=== PATIENT | female | born 1980 | race Caucasian/White ===

== ENCOUNTER 2019-02-20 07:31 | Emergency (ER) | payer MEDICAID, OTHER ==
[~2019-02-20] VITALS: Ht 160 cm; Wt 50.0 kg
[2019-02-20] MEDS ORDERED: albuterol 2.5 MG/3 ML nebule NEB ONE (08:20)
[2019-02-20] MEDS ORDERED: BENZ-16 PO (09:37)
[2019-02-20] MEDS ORDERED: ALBU18HF2 INH (09:37)
[2019-02-20 09:47] VITALS: BP 131/70
== END 2019-02-20 09:50 | disposition home or self-care (01) ==
LOC: ER 07:32
DX: J06.9 Acute upper respiratory infection, unspecified (principal); J02.9 Acute pharyngitis, unspecified; J45.909 Unspecified asthma, uncomplicated; Z56.0 Unemployment, unspecified; Z90.49 Acquired absence of other specified parts of digestive tract; Z98.890 Other specified postprocedural states; Z88.6 Allergy status to analgesic agent; Z88.1 Allergy status to other antibiotic agents; Z87.891 Personal history of nicotine dependence
CPT/HCPCS: 71045; 94640; 94760; 99283

== ENCOUNTER 2019-04-08 07:06 | Emergency (ER) | payer MEDICAID, OTHER ==
[~2019-04-08] VITALS: Ht 160 cm; Wt 50.0 kg
[~2019-04-08 07:06] MED LIST: ALBU18HF2 INH
[2019-04-08 08:10] LABS: BASOPHILS % (AUTO) 0.4 % (0-1); EOSINOPHILS # (AUTO) 0.3 X10'3 (0-0.9); EOSINOPHILS % (AUTO) 2.2 % (0-6); HEMATOCRIT 39.1 % (35.0-45.0); HEMOGLOBIN 13.2 g/dl (12.0-16.0); LYMPHOCYTES # (AUTO) 1.6 X10'3 (1.1-4.8); LYMPHOCYTES % (AUTO) 13.6 % (21-51); MEAN CORPUSCULAR HEMOGLOBIN 30.7 PG (27.0-31.0); MEAN CORPUSCULAR HGB CONC 33.7 g/dL (33.0-36.5); MEAN CORPUSCULAR VOLUME 91.1 FL (78-98); MEAN PLATELET VOLUME 8.1 FL (7.4-10.4); MONOCYTES # (AUTO) 0.7 X10'3 (0-0.9); MONOCYTES % (AUTO) 6.2 % (2-12); NEUTROPHILS # (AUTO) 9.1 X10'3 (1.8-7.7); NEUTROPHILS % (AUTO) 77.6 % (42-75); PLATELET COUNT 349 X10'3 (140-440); RED BLOOD COUNT 4.29 X10'6 (4.20-5.60); RED CELL DISTRIBUTION WIDTH 14.1 % (11.5-14.5); WHITE BLOOD COUNT 11.7 X10'3 (4.5-11.0)
[2019-04-08 08:11] LABS: URINE HCG NEGATIVE (NEG)
[2019-04-08] MEDS ORDERED: morphine 4 MG/ML inj SYRINge IV PRN (08:15)
[2019-04-08] MEDS ORDERED: normal saline 1000ML IV soln IVB ONE (08:15)
[2019-04-08] MEDS ORDERED: ketorolac trometh. 30mg/ml inj. IV ONE (08:15)
[2019-04-08] MEDS ORDERED: ondansetron/PF 4mg/2ml inj IV ONE (08:15)
[2019-04-08 08:19] LABS: CLARITY,URINE CLOUDY (Clear); COLOR,URINE YELLOW (Yellow); GLUCOSE, URINE NEGATIVE (Neg); KETONES,URINE NEGATIVE (Neg); LEUKOCYTE ESTERASE ,URINE MODERATE (Neg); NITRITES, URINE NEGATIVE (Neg); OCCULT BLOOD,URINE LARGE (Neg); PROTEIN,URINE 100 mg/dl (Neg); UROBILINOGEN,URINE 0.2 E.U/dL (0.2-1.0)
[2019-04-08 08:24] LABS: ALANINE AMINOTRANSFERASE 15 U/L (12-78); ALBUMIN 3.7 G/DL (3.4-5.0); ALBUMIN/GLOBULIN RATIO 1.1 (1.1-1.5); ALKALINE PHOSPHATASE 66 IU/L (46-116); ANION GAP 9 (8-16); ASPARTATE AMINO TRANSFERASE 13 U/L (10-37); BILIRUBIN,TOTAL 0.6 MG/DL (0.1-1.0); BLOOD UREA NITROGEN 14 MG/DL (7-18); BUN/CREATININE RATIO 19.4 (6.6-38.0); CALCIUM 8.4 MG/DL (8.5-10.1); CHLORIDE 106 MMOL/L (99-107); CREATININE 0.72 MG/DL (0.40-0.90); GLUCOSE 89 MG/DL (70-104); LIPASE 87 U/L (73-393); POTASSIUM 3.9 MMOL/L (3.5-5.1); SODIUM 140 MMOL/L (135-145); TOTAL CARBON DIOXIDE 25.5 MMOL/L (24-32); eGFR 90 ML/MIN
[2019-04-08 08:25] LABS: UA COLLECTION TYPE CLN CATCH MIDSTREAM
[2019-04-08 08:28] LABS: WBC,URINE TNTC /HPF (0-4)
[2019-04-08 08:29] LABS: BACTERIA,URINE 1+ /HPF (Neg); RBC,URINE 50-100 /HPF (0-2); SQUAMOUS EPITHELIAL CELL,UR FEW /LPF (FEW)
[2019-04-08 08:30] LABS: MUCUS STRANDS NONE SEEN /LPF (Neg); TRANSITIONAL EPI CELLS,URINE FEW /HPF
[2019-04-08] MEDS ORDERED: SULF1TAB49 PO (08:32)
[2019-04-08 10:51] VITALS: BP 123/69
[2019-04-08] MEDS ORDERED: PROM12.512 PO (18:56)
== END 2019-04-08 10:55 | disposition home or self-care (01) ==
LOC: ER 07:06
DX: N39.0 Urinary tract infection, site not specified (principal); R31.9 Hematuria, unspecified; R19.7 Diarrhea, unspecified; J45.909 Unspecified asthma, uncomplicated; F17.200 Nicotine dependence, unspecified, uncomplicated; Z90.49 Acquired absence of other specified parts of digestive tract; Z98.890 Other specified postprocedural states; Z56.0 Unemployment, unspecified; Z88.6 Allergy status to analgesic agent; Z88.1 Allergy status to other antibiotic agents; Z79.899 Other long term (current) drug therapy
CPT/HCPCS: 36415; 80053; 81001; 81025; 83690; 85025; 87077; 87088; 87186; 96374; 96375; 99284; J1885; J2405; J7030; 96361

== ENCOUNTER 2019-04-08 15:55 | Emergency (ER) | payer MEDICAID ==
[~2019-04-08] VITALS: Ht 160 cm; Wt 50.0 kg
[~2019-04-08 15:55] MED LIST changes: +SULF1TAB49 PO
[2019-04-08 16:08] VITALS: BP 142/92
[2019-04-08] MEDS ORDERED: normal saline 1000ML IV soln IV ONE (16:20)
[2019-04-08] MEDS ORDERED: CefTRIAXone 2gm/D5W 50ml 50 ML IV ONE (16:20)
[2019-04-08 16:58] LABS: BASOPHILS # (AUTO) 0.1 X10'3 (0-0.2); BASOPHILS % (AUTO) 1.2 % (0-1); EOSINOPHILS # (AUTO) 0.3 X10'3 (0-0.9); EOSINOPHILS % (AUTO) 3.1 % (0-6); HEMATOCRIT 36.6 % (35.0-45.0); HEMOGLOBIN 12.5 g/dl (12.0-16.0); LYMPHOCYTES # (AUTO) 2.3 X10'3 (1.1-4.8); LYMPHOCYTES % (AUTO) 27.3 % (21-51); MEAN CORPUSCULAR HEMOGLOBIN 31.6 PG (27.0-31.0); MEAN CORPUSCULAR HGB CONC 34.2 g/dL (33.0-36.5); MEAN CORPUSCULAR VOLUME 92.3 FL (78-98); MEAN PLATELET VOLUME 8.1 FL (7.4-10.4); MONOCYTES # (AUTO) 0.8 X10'3 (0-0.9); MONOCYTES % (AUTO) 9.4 % (2-12); PLATELET COUNT 348 X10'3 (140-440); RED BLOOD COUNT 3.97 X10'6 (4.20-5.60); WHITE BLOOD COUNT 8.5 X10'3 (4.5-11.0)
[2019-04-08 17:13] LABS: ALANINE AMINOTRANSFERASE 20 U/L (12-78); ALBUMIN 3.5 G/DL (3.4-5.0); ALBUMIN/GLOBULIN RATIO 1.1 (1.1-1.5); ALKALINE PHOSPHATASE 63 IU/L (46-116); ANION GAP 10 (8-16); ASPARTATE AMINO TRANSFERASE 21 U/L (10-37); BILIRUBIN,TOTAL 0.4 MG/DL (0.1-1.0); BLOOD UREA NITROGEN 10 MG/DL (7-18); BUN/CREATININE RATIO 16.7 (6.6-38.0); CALCIUM 8.1 MG/DL (8.5-10.1); CHLORIDE 109 MMOL/L (99-107); GLUCOSE 94 MG/DL (70-104); POTASSIUM 3.9 MMOL/L (3.5-5.1); SODIUM 140 MMOL/L (135-145); TOTAL CARBON DIOXIDE 21.1 MMOL/L (24-32); TOTAL PROTEIN 6.7 G/DL (6.4-8.2); eGFR > 90 ML/MIN
[2019-04-08] MEDS ORDERED: famotidine/PF 10 mg/ml inj IV ONE (17:30)
[2019-04-08] MEDS ORDERED: ondansetron/PF 4mg/2ml inj IV ONE (17:30)
[2019-04-08] MEDS ORDERED: ketorolac trometh. 30mg/ml inj. IV ONE (17:30)
[2019-04-08] MEDS ORDERED: proCHLORperazine 10mg tablet PO ONE (18:55)
[2019-04-08] MEDS ORDERED: PROM12.512 PO (18:56)
== END 2019-04-08 19:33 | disposition home or self-care (01) ==
LOC: ER 15:55
DX: N39.0 Urinary tract infection, site not specified (principal); N83.202 Unspecified ovarian cyst, left side; R19.7 Diarrhea, unspecified; J45.909 Unspecified asthma, uncomplicated; Z90.49 Acquired absence of other specified parts of digestive tract; Z98.890 Other specified postprocedural states; Z56.0 Unemployment, unspecified; Z79.82 Long term (current) use of aspirin; Z88.1 Allergy status to other antibiotic agents; Z79.899 Other long term (current) drug therapy
CPT/HCPCS: 36415; 74176; 80053; 83605; 84145; 85025; 87040; 99284; Q0164

== ENCOUNTER 2019-04-20 11:05 | Emergency (ER) | payer SELFPAY ==
[~2019-04-20] VITALS: Ht 160 cm; Wt 51.3 kg
[~2019-04-20 11:05] MED LIST changes: +PROM12.512 PO; -SULF1TAB49 PO
[2019-04-20] MEDS ORDERED: acetaminophen 325mg tablet PO STA (11:16)
[2019-04-20] MEDS ORDERED: CefTRIAXone 2gm/D5W 50ml 50 ML IV ONE (11:20)
[2019-04-20] MEDS ORDERED: proCHLORperazine 10 MG/2 ml inj IV ONE (11:20)
[2019-04-20] MEDS ORDERED: CIPR-259 PO (11:20)
[2019-04-20] MEDS ORDERED: normal saline 1000ml 1,000 ML IV ONE (11:20)
[2019-04-20 11:36] LABS: URINE HCG NEGATIVE (NEG)
[2019-04-20 11:38] LABS: CLARITY,URINE CLEAR (Clear); COLOR,URINE YELLOW (Yellow); GLUCOSE, URINE NEGATIVE (Neg); KETONES,URINE NEGATIVE (Neg); LEUKOCYTE ESTERASE ,URINE NEGATIVE (Neg); NITRITES, URINE NEGATIVE (Neg); OCCULT BLOOD,URINE NEGATIVE (Neg); PH,URINE 7.5 (4.8-8.0); PROTEIN,URINE NEGATIVE (Neg); UROBILINOGEN,URINE 0.2 E.U/dL (0.2-1.0)
[2019-04-20 11:43] LABS: UA COLLECTION TYPE CLN CATCH MIDSTREAM
--- NOTE | 2019-04-20 12:12 | NUR ---
PT IS REFUSING IVF, ANTIBIOTIC, "IF MY URINE IS OK WHY DO I NEED THIS?", [employer] AGUIAR PERFORATOR AWARE AND TALKED WITH PT
[2019-04-20 12:21] VITALS: BP 129/89
== END 2019-04-20 12:32 | disposition home or self-care (01) ==
LOC: ER 11:05
DX: R10.30 Lower abdominal pain, unspecified (principal); M54.5 Low back pain; R11.0 Nausea; J45.909 Unspecified asthma, uncomplicated; Z90.49 Acquired absence of other specified parts of digestive tract; Z98.890 Other specified postprocedural states; Z56.0 Unemployment, unspecified; Z88.6 Allergy status to analgesic agent; Z88.1 Allergy status to other antibiotic agents; Z88.8 Allergy status to other drugs, medicaments and biological substances; Z79.2 Long term (current) use of antibiotics; Z79.899 Other long term (current) drug therapy
CPT/HCPCS: 81003; 81025; 99283

== ENCOUNTER 2019-06-24 08:02 | Emergency (ER) | payer SELFPAY ==
[~2019-06-24] VITALS: Ht 160 cm; Wt 47.0 kg
[2019-06-24] MEDS ORDERED: SULF1TAB49 PO (09:09)
[2019-06-24 09:21] VITALS: BP 142/92
== END 2019-06-24 09:24 | disposition home or self-care (01) ==
LOC: ER 08:03
DX: R22.1 Localized swelling, mass and lump, neck (principal); M54.2 Cervicalgia; J45.909 Unspecified asthma, uncomplicated; Z98.890 Other specified postprocedural states; Z90.49 Acquired absence of other specified parts of digestive tract; Z56.0 Unemployment, unspecified; Z88.6 Allergy status to analgesic agent; Z88.1 Allergy status to other antibiotic agents; Z88.8 Allergy status to other drugs, medicaments and biological substances; Z79.899 Other long term (current) drug therapy
CPT/HCPCS: 99283

== ENCOUNTER 2019-06-26 08:37 | Emergency (ER) | payer OTHER ==
[~2019-06-26] VITALS: Ht 160 cm; Wt 48.6 kg
[~2019-06-26 08:37] MED LIST changes: +SULF1TAB49 PO
[2019-06-26 08:42] VITALS: BP 155/102
--- NOTE | 2019-06-26 09:15 | NUR ---
Assumed care of assignment. Pt not in room. Spoke with registratar who states pt eloped out the front of ER.
== END 2019-06-26 09:27 | disposition left against medical advice (07) ==
LOC: ER 08:38
DX: R22.1 Localized swelling, mass and lump, neck (principal); M54.2 Cervicalgia; J45.909 Unspecified asthma, uncomplicated; F17.200 Nicotine dependence, unspecified, uncomplicated; Z90.49 Acquired absence of other specified parts of digestive tract; Z98.890 Other specified postprocedural states; Z56.0 Unemployment, unspecified; Z88.6 Allergy status to analgesic agent; Z88.1 Allergy status to other antibiotic agents; Z88.8 Allergy status to other drugs, medicaments and biological substances; Z79.2 Long term (current) use of antibiotics; Z79.899 Other long term (current) drug therapy
CPT/HCPCS: 99281